=== PATIENT | female | born 1955 | race African-American/Black ===

== ENCOUNTER 2017-10-31 07:35 | Inpatient (IN) | payer SELFPAY ==
[~2017-10-31] VITALS: Ht 180.3 cm; Wt 82.2 kg
[~2017-10-31 07:35] MED LIST: VALS1TAB34 PO
[2017-10-31] MEDS ORDERED: IPRATROPIUM BROMIDE (0.02%) 0.5MG/2.5ML NEB HHN ONE (08:00)
[2017-10-31] MEDS ORDERED: ALBUTEROL (0.083%) 2.5MG/3ML NEB HHN ONE (08:00)
[2017-10-31] MEDS ORDERED: PREDNISONE 20MG TABLET PO ONE (08:00)
[2017-10-31] MEDS: BUDESONIDE 0.5MG/2ML NEB HHN SCH (08:20)
[2017-10-31] MEDS: IPRATROPIUM/ALBUTEROL 0.5-3(2.5)MG/3ML NEB HHN SCH (08:30)
[2017-10-31] MEDS ORDERED: ALBUTEROL (0.5%) 2.5MG/0.5ML NEB HHN ONE (12:00)
[2017-10-31 12:09] LABS: HEMATOCRIT. 40.3 % (36.0-48.0); HEMOGLOBIN. 13.3 g/dL (12.0-16.0); MEAN CORPUSCULAR HEMOGLOBIN 29.3 pg (28.0-32.0); MEAN CORPUSCULAR VOLUME 88.6 fL (81.0-99.0); MEAN PLATELET VOLUME 7.2 fl (7.4-10.4); PLATELET 308 x1000/uL (130-400); RED BLOOD CELL COUNT 4.55 mill/uL (4.2-5.4); RED CELL DISTRIBUTION WIDTH 13.4 % (11.6-14.6)
[2017-10-31 12:14] LABS: CHLORIDE 102 mEq/L (98-107)
[2017-10-31] MEDS ORDERED: POTASSIUM CHLORIDE 20MEQ/PACKET PO ONE (12:30)
[2017-10-31 12:46] LABS: PLATELET ESTIMATE NORMAL
[2017-10-31] MEDS ORDERED: ACETAMINOPHEN 650MG/20.3ML UDC GT PRN (14:00)
[2017-10-31] MEDS: ACETAMINOPHEN 325MG TABLET PO PRN (14:00)
[2017-10-31] MEDS ORDERED: NON FORMULARY PATIENT HOME MED EA XX SCH (14:00)
[2017-10-31] MEDS ORDERED: POTASSIUM CHLORIDE 20MEQ TABLET SR PO NR (14:00)
[2017-10-31] MEDS ORDERED: GUAIFENESIN 200MG/10ML SUGAR FREE UDC PO PRN (14:00)
[2017-10-31] MEDS ORDERED: ASPIRIN 81MG EC TABLET PO NR (14:00)
[2017-10-31] MEDS ORDERED: ONDANSETRON HCL 4MG/2ML VIAL IV PRN (14:00)
[2017-10-31] MEDS ORDERED: CLONIDINE 0.1MG TABLET PO PRN (14:00)
[2017-10-31] MEDS ORDERED: AZITHROMYCIN 500 MG TABLET PO NR (14:00)
[2017-10-31] MEDS ORDERED: CEFTRIAXONE 1 G PREMIX 50 ML IV SCH (14:15)
[2017-10-31 14:17] LABS: BG BASE EXCESS -1.5 mmol/L (-2.0-2.0); BG CARBOXYHEMOGLOBIN 0.4 % (0.5-1.5); BG DEOXYHEMOGLOBIN 4.8 % (0.0-5.0); BG METHEMOGLOBIN 0.4 % (0.0-1.5); BG OXYGEN SATURATION 95.2 % (92.0-98.5); BG OXYHEMOGLOBIN 94.4 % (94.0-97.0); BG PCO2 33.6 mmHg (35.0-45.0); BG PH 7.434 (7.350-7.450); BG PO2 76.6 mmHg (75.0-100.0); BG SAMPLE SITE RIGHT RADIAL; BG TOTAL HEMOGLOBIN 13.4 g/dL (12.0-18.0); BG VENT MODE ROOM AIR
[2017-10-31 14:55] LABS: CREATINE KINASE MB FRACTION 1.2 ng/mL (0.5-3.6); TROPONIN I < 0.02 ng/mL (0.00-0.04)
[2017-10-31 17:03] VITALS: BP 128/63
[2017-10-31 18:17] VITALS: BP 128/63
[2017-10-31] MEDS: METHYLPREDNISOLONE SOD SUCC 40 MG/ML VIAL IV SCH (18:27)
[2017-10-31] MEDS: ENOXAPARIN 40MG/0.4ML SYR SUBCUT SCH (18:29)
[2017-10-31] MEDS ORDERED: MVI, ADULT NO.1 10 ML, FOLIC ACID 1 MG, THIAMINE HCL 100 MG in SODIUM CHLORIDE 0.9% 1,0... IV SCH ×4 (19:30)
[2017-10-31 20:00] VITALS: BP 140/70
[2017-10-31 20:24] LABS: CLARITY URINE CLEAR (CLEAR); COLOR URINE YELLOW (YELLOW); KETONES URINE NEGATIVE (NEGATIVE); LEUKOCYTE ESTERASE URINE NEGATIVE (NEGATIVE); NITRITE URINE NEGATIVE (NEGATIVE); OCCULT BLOOD URINE NEGATIVE (NEGATIVE); PROTEIN URINE NEGATIVE (NEGATIVE); SPECIFIC GRAVITY URINE 1.013 (1.005-1.030); UROBILINOGEN URINE 0.2 E.U./dL (0.2-1.0)
[2017-10-31 20:36] LABS: *AMPHETAMINES SCREEN URINE NEGATIVE (NEGATIVE); *BARBITURATES SCREEN URINE NEGATIVE (NEGATIVE); *BENZODIAZEPINES SCREEN URINE NEGATIVE (NEGATIVE); *COCAINE SCREEN URINE NEGATIVE (NEGATIVE); CANNABINOID URINE SCREEN NEGATIVE (NEGATIVE); METHADONE URINE SCREEN NEGATIVE (NEGATIVE); OPIATES URINE SCREEN NEGATIVE (NEGATIVE); PHENCYCLIDINE URINE SCREEN NEGATIVE (NEGATIVE)
[2017-10-31] MEDS: FAMOTIDINE 20MG TABLET PO SCH (20:50)
[2017-10-31] MEDS: MONTELUKAST SODIUM 10MG TABLET PO SCH (20:50)
[2017-10-31] MEDS: LEVOFLOXACIN 750MG PREMIX 150 ML IV SCH (20:51)
[2017-10-31 23:25] LABS: CREATINE KINASE MB FRACTION 1.5 ng/mL (0.5-3.6); TROPONIN I < 0.02 ng/mL (0.00-0.04)
[2017-11-01] VITALS: BP 137/67
[2017-11-01] MEDS: IPRATROPIUM/ALBUTEROL 0.5-3(2.5)MG/3ML NEB HHN SCH ×6 (00:30→20:27)
[2017-11-01] MEDS: METHYLPREDNISOLONE SOD SUCC 40 MG/ML VIAL IV SCH (02:01)
[2017-11-01 04:00] VITALS: BP 122/60
[2017-11-01 05:52] LABS: HEMOGLOBIN. 12.5 g/dL (12.0-16.0); MEAN CORPUSCULAR HEMOGLOBIN 29.8 pg (28.0-32.0); MEAN CORPUSCULAR VOLUME 88.1 fL (81.0-99.0); MEAN PLATELET VOLUME 7.8 fl (7.4-10.4); PLATELET 283 x1000/uL (130-400); RED CELL DISTRIBUTION WIDTH 13.5 % (11.6-14.6)
[2017-11-01 07:51] LABS: CHLORIDE 107 mEq/L (98-107)
[2017-11-01 08:00] VITALS: BP 137/61
[2017-11-01] MEDS ORDERED: POTASSIUM CHLORIDE 20MEQ TABLET SR PO NR (08:00)
[2017-11-01] MEDS ORDERED: MAGNESIUM 2 G PREMIX 50 ML IV ONE (08:00)
[2017-11-01] MEDS: FAMOTIDINE 20MG TABLET PO SCH ×2 (08:25→21:00)
[2017-11-01] MEDS: HYDROCHLOROTHIAZIDE 12.5MG CAPSULE PO SCH (08:25)
[2017-11-01] MEDS: ACETAMINOPHEN 325MG TABLET PO PRN ×2 (08:25→21:02)
[2017-11-01] MEDS: AZITHROMYCIN 250 MG TABLET PO SCH (08:25)
[2017-11-01] MEDS: LOSARTAN POTASSIUM 100 MG TABLET PO SCH ×2 (08:25→08:34)
[2017-11-01] MEDS ORDERED: KETOROLAC 30MG/ML VIAL IV NR (08:30)
[2017-11-01] MEDS ORDERED: POTASSIUM CHLORIDE 20MEQ TABLET SR PO SCH (09:00)
[2017-11-01] MEDS ORDERED: LOSARTAN POTASSIUM 100 MG TABLET PO SCH (09:00)
[2017-11-01] MEDS ORDERED: FLUTICASONE/VILANTEROL 200-25 BLST.W.DEV ORI SCH (09:00)
[2017-11-01 09:31] LABS: BG BASE EXCESS 0.1 mmol/L (-2.0-2.0); BG CARBOXYHEMOGLOBIN 0.1 % (0.5-1.5); BG DEOXYHEMOGLOBIN 5.2 % (0.0-5.0); BG FRACTION INSPIRED OXYGEN 21; BG HCO3 ACT 22.9 mmol/L (22.0-26.0); BG METHEMOGLOBIN 0.3 % (0.0-1.5); BG OXYGEN SATURATION 94.8 % (92.0-98.5); BG OXYHEMOGLOBIN 94.4 % (94.0-97.0); BG PCO2 31.4 mmHg (35.0-45.0); BG SAMPLE SITE RIGHT BRACHIAL; BG TOTAL HEMOGLOBIN 12.5 g/dL (12.0-18.0); BG VENT MODE ROOM AIR
[2017-11-01 12:00] VITALS: BP 124/55
[2017-11-01 13:05] LABS: PLATELET ESTIMATE NORMAL
[2017-11-01] MEDS: AMLODIPINE 5MG TABLET PO SCH (13:30)
[2017-11-01] MEDS ORDERED: GUAIFENESIN/CODEINE 100-10MG/5ML UDC PO PRN (13:45)
[2017-11-01] MEDS ORDERED: LORAZEPAM 0.5MG TABLET PO PRN (13:45)
[2017-11-01 16:00] VITALS: BP 127/67
[2017-11-01] MEDS: POTASSIUM CHLORIDE 20MEQ TABLET SR PO SCH (17:09)
[2017-11-01] MEDS: MONTELUKAST SODIUM 10MG TABLET PO SCH (17:09)
[2017-11-01] MEDS: ENOXAPARIN 40MG/0.4ML SYR SUBCUT SCH (17:09)
[2017-11-01 20:26] VITALS: BP 126/59
[2017-11-01] MEDS: BUDESONIDE 0.5MG/2ML NEB HHN SCH (20:27)
[2017-11-01] MEDS ORDERED: HYDROCODONE/ACETAMINOPHEN 5/325MG TABLET PO PRN (21:25)
[2017-11-01] MEDS: LEVOFLOXACIN 750MG PREMIX 150 ML IV SCH (22:27)
[2017-11-02] MEDS: IPRATROPIUM/ALBUTEROL 0.5-3(2.5)MG/3ML NEB HHN SCH ×5 (00:05→16:35)
[2017-11-02 00:18] VITALS: BP 116/67
[2017-11-02 04:00] VITALS: BP 118/64
[2017-11-02] MEDS: POTASSIUM CHLORIDE 20MEQ TABLET SR PO SCH ×2 (06:08→17:34)
[2017-11-02 07:27] LABS: BASOPHILS % 0.1 % (0.0-2.0); EOSINOPHILS % 0.1 % (0.0-5.0); HEMATOCRIT. 33.7 % (36.0-48.0); LYMPHOCYTES % 18.7 % (20.0-50.0); MEAN CORPUSCULAR HEMOGLOBIN 28.7 pg (28.0-32.0); MEAN PLATELET VOLUME 7.8 fl (7.4-10.4); MONOCYTES % 4.6 % (2.0-8.0); NEUTROPHILS % 76.5 % (40.0-76.0); PLATELET 280 x1000/uL (130-400); RED BLOOD CELL COUNT 3.83 mill/uL (4.2-5.4); RED CELL DISTRIBUTION WIDTH 13.7 % (11.6-14.6)
[2017-11-02 07:35] LABS: CHLORIDE 111 mEq/L (98-107)
[2017-11-02 08:00] VITALS: BP 109/61
[2017-11-02] MEDS ORDERED: POTASSIUM CHLORIDE 20MEQ TABLET SR PO SCH ×2 (08:15→14:00)
[2017-11-02] MEDS: BUDESONIDE 0.5MG/2ML NEB HHN SCH (08:35)
[2017-11-02] MEDS: FAMOTIDINE 20MG TABLET PO SCH (08:35)
[2017-11-02] MEDS: HYDROCHLOROTHIAZIDE 12.5MG CAPSULE PO SCH (08:35)
[2017-11-02] MEDS: AZITHROMYCIN 250 MG TABLET PO SCH (08:35)
[2017-11-02] MEDS: AMLODIPINE 5MG TABLET PO SCH (08:35)
[2017-11-02] MEDS: ACETAMINOPHEN 325MG TABLET PO PRN (08:35)
[2017-11-02] MEDS ORDERED: POTASSIUM CHLORIDE INJ 40 MEQ in DEXT 5% WATER 500 ML IV SCH (09:00)
[2017-11-02 12:00] VITALS: BP 119/67
[2017-11-02 15:56] VITALS: BP 114/65
[2017-11-02 16:01] VITALS: BP 114/65
[2017-11-02] MEDS: ENOXAPARIN 40MG/0.4ML SYR SUBCUT SCH (17:34)
[2017-11-02] MEDS: MONTELUKAST SODIUM 10MG TABLET PO SCH (17:34)
== END 2017-11-02 18:27 | disposition home or self-care (01) | DRG 141 ==
LOC: ER 07:47 → 7WST 11:54 → EDBEDREQ 12:00 → ENRESERV 16:20
PROVIDERS: ADMIT Internal Medicine Geriatric Medicine; ATTEND Internal Medicine Geriatric Medicine
DX: J45.902 Unspecified asthma with status asthmaticus (principal); J96.00 Acute respiratory failure, unspecified whether with hypoxia or hypercapnia; J18.9 Pneumonia, unspecified organism; E87.3 Alkalosis; E11.65 Type 2 diabetes mellitus with hyperglycemia; E87.0 Hyperosmolality and hypernatremia; E87.6 Hypokalemia; I10 Essential (primary) hypertension; J42 Unspecified chronic bronchitis; M79.1 Myalgia; J98.11 Atelectasis; T38.0X5A Adverse effect of glucocorticoids and synthetic analogues, initial encounter; Z82.0 Family history of epilepsy and other diseases of the nervous system; Z82.3 Family history of stroke; Z82.49 Family history of ischemic heart disease and other diseases of the circulatory system; Z83.3 Family history of diabetes mellitus; Z87.891 Personal history of nicotine dependence; Z91.19 Patient's noncompliance with other medical treatment and regimen
CPT/HCPCS: 36415; 36600; 71045; 71250; 80048; 80305; 81003; 82375; 82553; 82805; 83036; 83735; 84132; 84484; 85025; 87070; 87086; 93970; 94640; 94664; 96374; 99291; J1650; J1885; J1956; J2920; J3411; J3480; J3490; J7030; J7050; J7060; J7512; J7611; J7620; J7626

== ENCOUNTER 2017-12-08 04:23 | Inpatient (IN) | payer SELFPAY ==
[~2017-12-08] VITALS: Ht 182.9 cm; Wt 77.1 kg
[2017-12-08] MEDS ORDERED: METHYLPREDNISOLONE SOD SUCC 125 MG/2 ML VIAL IV STA (05:09)
[2017-12-08] MEDS ORDERED: ALBUTEROL (0.083%) 2.5MG/3ML NEB HHN STA (05:09)
[2017-12-08] MEDS ORDERED: IPRATROPIUM BROMIDE (0.02%) 0.5MG/2.5ML NEB HHN STA (05:09)
[2017-12-08] MEDS ORDERED: MAGNESIUM 2 G PREMIX 50 ML IV ONE (05:15)
[2017-12-08 05:37] LABS: BASOPHILS % 0.3 % (0.0-2.0); EOSINOPHILS % 2.2 % (0.0-5.0); HEMATOCRIT. 42.1 % (36.0-48.0); HEMOGLOBIN. 14.2 g/dL (12.0-16.0); LYMPHOCYTES % 30.8 % (20.0-50.0); MEAN CORPUSCULAR HEMOGLOBIN 29.7 pg (28.0-32.0); MEAN CORPUSCULAR VOLUME 88.3 fL (81.0-99.0); MEAN PLATELET VOLUME 7.5 fl (7.4-10.4); NEUTROPHILS % 62.7 % (40.0-76.0); PLATELET 301 x1000/uL (130-400); RED BLOOD CELL COUNT 4.77 mill/uL (4.2-5.4); RED CELL DISTRIBUTION WIDTH 13.4 % (11.6-14.6)
[2017-12-08 05:44] LABS: PROTHROMBIN TIME 10.7 sec (9.4-11.6)
[2017-12-08 05:47] LABS: CHLORIDE 105 mEq/L (98-107)
[2017-12-08] MEDS ORDERED: KETOROLAC 30MG/ML VIAL IV ONE (06:30)
[2017-12-08] MEDS ORDERED: POTASSIUM CHLORIDE 20MEQ TABLET SR PO ONE (06:30)
[2017-12-08] MEDS ORDERED: LORAZEPAM 2MG/ML CPJ IV PRN (10:15)
[2017-12-08] MEDS ORDERED: HYDROMORPHONE HCL/PF 2MG/ML CPJ IV PRN (10:15)
[2017-12-08] MEDS ORDERED: ONDANSETRON HCL 4MG/2ML VIAL IV PRN (10:15)
[2017-12-08 12:16] LABS: CLARITY URINE CLEAR (CLEAR); COLOR URINE YELLOW (YELLOW); KETONES URINE NEGATIVE (NEGATIVE); LEUKOCYTE ESTERASE URINE 1+ (NEGATIVE); NITRITE URINE NEGATIVE (NEGATIVE); OCCULT BLOOD URINE NEGATIVE (NEGATIVE); PH URINE 5.5 (4.5-8.0); PROTEIN URINE NEGATIVE (NEGATIVE); UROBILINOGEN URINE 0.2 E.U./dL (0.2-1.0)
[2017-12-08 13:01] LABS: *AMPHETAMINES SCREEN URINE NEGATIVE (NEGATIVE); *BARBITURATES SCREEN URINE NEGATIVE (NEGATIVE); *BENZODIAZEPINES SCREEN URINE NEGATIVE (NEGATIVE); *COCAINE SCREEN URINE NEGATIVE (NEGATIVE); METHADONE URINE SCREEN NEGATIVE (NEGATIVE)
[2017-12-08 13:02] LABS: CANNABINOID URINE SCREEN NEGATIVE (NEGATIVE); OPIATES URINE SCREEN NEGATIVE (NEGATIVE); PHENCYCLIDINE URINE SCREEN NEGATIVE (NEGATIVE)
[2017-12-08 15:31] VITALS: BP 146/76
[2017-12-08] MEDS ORDERED: PROM6.25 PO (15:35)
[2017-12-08] MEDS ORDERED: HYDR25TA PO (15:36)
[2017-12-08] MEDS ORDERED: LEVO500T89 PO (15:38)
[2017-12-08] MEDS ORDERED: AMLO10TA80 PO (15:39)
[2017-12-08] MEDS ORDERED: MONT10TA21 PO (15:41)
[2017-12-08] MEDS ORDERED: IBUP200C5 PO (15:41)
[2017-12-08] MEDS ORDERED: ALBU18HF2 IH (15:41)
[2017-12-08 15:43] VITALS: BP 146/76
[2017-12-08 16:00] VITALS: BP 148/63
[2017-12-08] MEDS ORDERED: ENOXAPARIN 40MG/0.4ML SYR SUBCUT SCH (18:00)
[2017-12-08 18:16] LABS: CREATINE KINASE 148 IU/L (26-192); CREATINE KINASE MB FRACTION 1.2 ng/mL (0.5-3.6)
[2017-12-08] MEDS: METHYLPREDNISOLONE SOD SUCC 125 MG/2 ML VIAL IV SCH (19:05)
[2017-12-08 20:00] VITALS: BP 140/65
[2017-12-08] MEDS: ACETAMINOPHEN 325MG TABLET PO PRN (20:43)
[2017-12-08] MEDS: IPRATROPIUM/ALBUTEROL 0.5-3(2.5)MG/3ML NEB INH PRN (21:09)
[2017-12-09] VITALS: BP 134/64
[2017-12-09 00:40] LABS: CREATINE KINASE 140 IU/L (26-192); CREATINE KINASE MB FRACTION 1.5 ng/mL (0.5-3.6)
[2017-12-09] MEDS: METHYLPREDNISOLONE SOD SUCC 125 MG/2 ML VIAL IV SCH ×2 (01:45→09:39)
[2017-12-09 04:00] VITALS: BP 131/61
[2017-12-09 07:47] VITALS: BP 142/71
[2017-12-09] MEDS: IPRATROPIUM/ALBUTEROL 0.5-3(2.5)MG/3ML NEB INH PRN ×3 (07:59→20:48)
[2017-12-09] MEDS: ACETAMINOPHEN 325MG TABLET PO PRN (08:41)
[2017-12-09] MEDS: TRAMADOL 50MG TABLET PO PRN (10:26)
[2017-12-09] MEDS ORDERED: DEXTROSE 50% WATER 50ML SYRINGE IV PRN (12:00)
[2017-12-09] MEDS: BLOOD SUGAR DIAGNOSTIC STRIP TEST SCH ×3 (12:10→20:43)
[2017-12-09 12:28] VITALS: BP 111/72
[2017-12-09 12:29] LABS: HEMATOCRIT. 38.3 % (36.0-48.0); HEMOGLOBIN. 12.5 g/dL (12.0-16.0); MEAN CORPUSCULAR HEMOGLOBIN 28.9 pg (28.0-32.0); MEAN CORPUSCULAR VOLUME 88.9 fL (81.0-99.0); PLATELET 281 x1000/uL (130-400); RED CELL DISTRIBUTION WIDTH 13.7 % (11.6-14.6)
[2017-12-09] MEDS: INSULIN LISPRO 100 UNITS/ML SUBCUT SCH ×3 (12:29→20:44)
[2017-12-09] MEDS: BENZONATATE 100MG CAPSULE PO SCH ×2 (12:31→20:37)
[2017-12-09] MEDS: LORATADINE 10MG TABLET PO SCH (13:00)
[2017-12-09 13:43] LABS: CHLORIDE 107 mEq/L (98-107)
[2017-12-09 16:39] LABS: PLATELET ESTIMATE NORMAL
[2017-12-09 17:22] VITALS: BP 144/79
[2017-12-09] MEDS: MONTELUKAST SODIUM 10MG TABLET PO SCH (17:28)
[2017-12-09] MEDS: PREDNISONE 20MG TABLET PO SCH (17:28)
[2017-12-09 20:00] VITALS: BP 152/73
[2017-12-09] MEDS: FAMOTIDINE 20MG/2ML VIAL IV SCH (20:43)
[2017-12-09] MEDS: BUDESONIDE 0.5MG/2ML NEB HHN SCH (20:48)
[2017-12-09] MEDS: AMLODIPINE 10MG TABLET PO SCH (21:49)
[2017-12-10] VITALS: BP 140/69
[2017-12-10 04:00] VITALS: BP 138/72
[2017-12-10] MEDS: BENZONATATE 100MG CAPSULE PO SCH ×2 (04:48→12:15)
[2017-12-10 07:11] LABS: BASOPHILS % 0.2 % (0.0-2.0); HEMATOCRIT. 35.2 % (36.0-48.0); HEMOGLOBIN. 11.7 g/dL (12.0-16.0); LYMPHOCYTES % 7.6 % (20.0-50.0); MEAN CORPUSCULAR HEMOGLOBIN 29.2 pg (28.0-32.0); MEAN CORPUSCULAR VOLUME 87.9 fL (81.0-99.0); MONOCYTES % 3.7 % (2.0-8.0); NEUTROPHILS % 88.5 % (40.0-76.0); PLATELET 252 x1000/uL (130-400)
[2017-12-10] MEDS: INSULIN LISPRO 100 UNITS/ML SUBCUT SCH ×2 (07:40→11:57)
[2017-12-10] MEDS: BLOOD SUGAR DIAGNOSTIC STRIP TEST SCH ×2 (07:44→11:33)
[2017-12-10 07:57] LABS: CHLORIDE 109 mEq/L (98-107)
[2017-12-10 08:00] VITALS: BP 141/71
[2017-12-10] MEDS: IPRATROPIUM/ALBUTEROL 0.5-3(2.5)MG/3ML NEB INH PRN (08:55)
[2017-12-10] MEDS: BUDESONIDE 0.5MG/2ML NEB HHN SCH (08:55)
[2017-12-10] MEDS: FAMOTIDINE 20MG/2ML VIAL IV SCH (09:00)
[2017-12-10] MEDS: LORATADINE 10MG TABLET PO SCH (09:00)
[2017-12-10] MEDS ORDERED: HYDROCHLOROTHIAZIDE 25MG TABLET PO SCH (09:00)
[2017-12-10] MEDS: AMLODIPINE 10MG TABLET PO SCH (09:06)
[2017-12-10] MEDS: PREDNISONE 20MG TABLET PO SCH ×2 (09:06→17:51)
[2017-12-10] MEDS: TRAMADOL 50MG TABLET PO PRN (09:06)
[2017-12-10 12:00] VITALS: BP 129/62
[2017-12-10] MEDS ORDERED: THROAT LOZENGES-BENZOCAINE/MENTH/CETYLPYRD CL LOZENGES MM PRN (13:30)
[2017-12-10 16:24] VITALS: BP 129/83
[2017-12-10] MEDS: MONTELUKAST SODIUM 10MG TABLET PO SCH (17:51)
== END 2017-12-10 18:06 | disposition home or self-care (01) | DRG 133 ==
LOC: ER 04:28 → 8WST 06:28 → EDBEDREQ 06:31 → ENRESERV 11:08 → CANRESERV 11:08 → ENRESERV 13:37
PROVIDERS: ADMIT Internal Medicine Nephrology; ATTEND Internal Medicine Nephrology
PROC: 5A09357 Assistance with Respiratory Ventilation, Less than 24 Consecutive Hours, Continuous Positive Airway Pressure (ICD-10-PCS; principal; 2017-12-08)
DX: J96.00 Acute respiratory failure, unspecified whether with hypoxia or hypercapnia (principal); J45.901 Unspecified asthma with (acute) exacerbation; I10 Essential (primary) hypertension; E11.9 Type 2 diabetes mellitus without complications; E87.6 Hypokalemia; D72.829 Elevated white blood cell count, unspecified; Z60.2 Problems related to living alone; Z81.8 Family history of other mental and behavioral disorders; Z82.3 Family history of stroke; Z82.49 Family history of ischemic heart disease and other diseases of the circulatory system; Z83.3 Family history of diabetes mellitus; Z79.899 Other long term (current) drug therapy; Z90.89 Acquired absence of other organs
CPT/HCPCS: 36415; 71045; 80048; 80053; 80305; 81003; 82550; 82553; 82962; 83605; 83880; 84484; 85007; 85025; 85027; 85610; 87040; 87086; 93005; 94640; 94660; 96365; 96375; 99291; J1650; J1885; J2930; J3475; J3490; J7512; J7611; J7620; J7626